=== PATIENT | female | born 1950 | race Caucasian/White ===

== ENCOUNTER 2017-10-14 04:51 | Inpatient (IN) | payer OTHER, BC ==
[2017-09-26 10:53] VITALS: BMI 58.0
--- NOTE | 2017-09-26 11:38 | PAT Medication Instructions ---
Service Date Sep 26, 2017. Current Home Medication List Atorvastatin (Lipitor), 20 MG PO HS Calcitriol (Rocaltrol Cap), 3 TAB PO QAM Calcium Carbonate-Cholecalcife (Caltrate 600+D), 3 TABS PO QAM Calcium Carbonate-Cholecalcife (Caltrate 600+D), 4 TAB PO 1200&1800 Hydrocodone/Acetaminophen 5MG/325MG ([place] 5MG/325MG), 1-2 TABLETS PO Q4-6H PRN for Pain Levothyroxine Sodium (Levothyroxine Sodium), 1 TAB PO QAM Lisinopril (Prinivil), 10 MG PO HS Magnesium Oxide (Mag-Ox), 400 MG PO QID Metformin Hcl (Glucophage), 500 MG PO BID Multivitamin (Multivitamin), 1 TAB PO QAM Ranitidine (Zantac), 150 MG PO QAM Medication Instructions For Your Scheduled Surgery - Hold the following medications the morning of surgery: Metformin Hcl (Glucophage), 500 MG PO BID Calcitriol (Rocaltrol Cap), 3 TAB PO QAM Calcium Carbonate-Cholecalcife (Caltrate 600+D), 3 TABS PO QAM Magnesium Oxide (Mag-Ox), 400 MG PO QID Multivitamin (Multivitamin), 1 TAB PO QAM - Take the following medications the morning of surgery with a sip of water: Hydrocodone/Acetaminophen 5MG/325MG ([place] 5MG/325MG), 1-2 TABLETS PO Q4-6H PRN for Pain (if needed, can be Levothyroxine Sodium (Levothyroxine Sodium), 1 TAB PO QAM Ranitidine (Zantac), 150 MG PO QAM - Take the following medications as scheduled the afternoon/night before surgery : Atorvastatin (Lipitor), 20 MG PO HS Calcium Carbonate-Cholecalcife (Caltrate 600+D), 4 TAB PO 1200&1800 Hydrocodone/Acetaminophen 5MG/325MG ([place] 5MG/325MG), 1-2 TABLETS PO Q4-6H PRN for Pain (if needed) Lisinopril (Prinivil), 10 MG PO HS Magnesium Oxide (Mag-Ox), 400 MG PO QID If you have any questions please call us at [phone] or [phone] or [phone]
--- NOTE | 2017-09-26 12:31 | DIAGNOSTIC IMAGING REPORT ---
CHEST 2 VIEWS ROUTINE CLINICAL HISTORY: Preoperative chest COMPARISON STUDY: No previous studies for comparison. FINDINGS: The cardiac and mediastinal contours are normal. There is no evidence of focal pulmonary consolidation. There is no evidence of failure. No pleural effusions are visualized.[ IMPRESSION: No active disease in the chest. Electronically signed by: Ketan Cummings M.D. 09/26/2017 12:29 PM Dictated Date/Time: 09/26/2017 12:28 PM
[2017-09-26 13:19] LABS: HEMOGLOBIN A1C 6.7 % (4.5-5.6)
--- NOTE | 2017-10-03 14:58 | HISTORY & PHYSICAL EXAMINATION ---
DATE OF ADMISSION: 10/14/2017 CHIEF COMPLAINT: Right knee pain. HISTORY OF PRESENT ILLNESS: Annette is a 67-year-old female with a 1 year history of right knee pain. The patient rates her pain as 9/10. She has pain with her daily activities. She has limited standing and walking tolerance. Pain is worse with weightbearing. The patient has been taking Benavides for pain control. She ambulates with a cane. She has failed conservative treatment and is scheduled for right knee replacement. PAST MEDICAL HISTORY: Hypertension, diabetes. She denies heart disease or DVT. PAST SURGICAL HISTORY: Breast biopsy, thyroidectomy, parathyroidectomy and I and D pilonidal cyst. SOCIAL HISTORY: The patient denies alcohol or tobacco use. She lives in a single-story home with her sister and is retired. FAMILY HISTORY: Brother of PE. MEDICATIONS: Atorvastatin 20 mg, calcitriol 0.25 mcg, Synthroid 175 mcg, Zantac 150 mg Caltrate, alprazolam 0.25 mg, lisinopril 10 mg, multivitamin, Benavides 5/325 p.r.n. ALLERGIES: None. REVIEW OF SYSTEMS: See HPI. Ten other systems reviewed, all negative. PHYSICAL EXAMINATION: VITAL SIGNS: Height 5 foot 4 inches, weight 326 pounds, BMI 56. GENERAL: This is a well-developed, well-nourished female who is alert and oriented x3. Mood and affect are appropriate. HEENT: Normocephalic, atraumatic. Mucous membranes are moist and intact. NECK: Supple without lymphadenopathy. HEART: Regular rate and rhythm without murmurs, rubs or gallops. LUNGS: Clear to auscultation without wheezes or rhonchi. ABDOMEN: Soft and nontender. Bowel sounds are equal and active. EXTREMITIES: No ecchymosis, redness or warmth. Thigh and calf are soft and nontender. She has varus deformity. Range of motion is from 10-90 degrees. She has no laxity. She is neurovascularly intact with +5/5 strength. She has moderate Brown cyst. X-RAY EXAMINATION: AP and lateral views showed joint space narrowing and osteophyte formation. IMPRESSION: Degenerative joint disease, right knee. PLAN: The patient will be admitted for a right total knee arthroplasty. We will plan on aspirin for DVT prophylaxis. She will have [facility] for home physical therapy.
[~2017-10-14] VITALS: Ht 162.6 cm; Wt 153.1 kg
[2017-10-14] VITALS (9 sets, daily range): BP systolic 115–148; BP diastolic 67–83; PULSE 55–68; TEMP 36.4–36.7; O2SAT 91–97; Ht 162.6 cm; Wt 153.1 kg
[~2017-10-14 04:51] MED LIST: ATOR-22 PO; CALC-354 PO; CALC0.2510 PO; GLC/500 PO; HYDR-5688 PO; LEVO175T3 PO; LISI10TA PO; MAGN400T5 PO; MULT-506 PO; RANI150T85 PO
[2017-10-14] MEDS ORDERED: METOCLOPRAMIDE HCL 10 MG TAB PO SCH (06:00)
[2017-10-14] MEDS ORDERED: LACTATED RINGER'S 1000ML 500 ML IV SCH (06:00)
[2017-10-14] MEDS ORDERED: ACETAMINOPHEN 500 MG TAB PO SCH (06:00)
[2017-10-14] MEDS ORDERED: GABAPENTIN 300 MG CAP PO SCH (06:00)
[2017-10-14] MEDS ORDERED: FAMOTIDINE 20 MG TAB PO SCH (06:00)
[2017-10-14] MEDS ORDERED: CEFAZOLIN 3000MG IV PUSH 22.5 ML IV SCH (06:00)
[2017-10-14] MEDS ORDERED: LACTATED RINGER'S 1000ML 1,000 ML IV SCH (06:00)
[2017-10-14] MEDS ORDERED: ROPIVACAINE 5MG/ML 30 ML 150 MG, BUPIVACAINE 0.5% MPF INJ 30 ML, EpINEphrine HCL INJ 0.... INFIL SCH ×8 (06:00)
[2017-10-14] MEDS ORDERED: DEXAMETHASONE 4 MG TAB PO SCH (06:00)
[2017-10-14] MEDS ORDERED: CeleBREX 200 MG CAP PO SCH (06:00)
[2017-10-14] MEDS: TRANEXAMIC ACID INJ 1,000 MG x 2 Bags IV SCH ×4 (06:30→07:08)
[2017-10-14] MEDS ORDERED: BUPIVACAINE 0.25% 30 ML VIAL ONE (06:42)
[2017-10-14] MEDS ORDERED: BUPIVACAINE 0.5 % 5 MG/1 ML PF 10ML VIAL ONE (06:43)
[2017-10-14] MEDS ORDERED: MIDAZOLAM HCL 1 MG/ML 2ML VIAL ONE (06:47)
[2017-10-14] MEDS ORDERED: FENTANYL CITRATE INJ 50 MCG/1 ML 2 ML VIAL ONE (06:48)
[2017-10-14] MEDS ORDERED: LIDOCAINE HCL 2% 2 ML VIAL (20MG/ML) ONE (06:50)
[2017-10-14] MEDS ORDERED: ONDANSETRON INJ 2 MG/ML 2 ML VIAL ONE (06:54)
[2017-10-14] MEDS ORDERED: PROPOFOL IV EMULSION 10 MG/ML 20 ML VIAL ONE (06:54)
[2017-10-14] MEDS ORDERED: BACITRACIN 50000 UNIT VIAL ONE (06:57)
[2017-10-14] MEDS ORDERED: POVIDONE-IODINE OP SOLN 30 ML BTL ONE (06:57)
[2017-10-14] MEDS ORDERED: ORTHO JOINT ANESTHETIC ONE (06:57)
--- NOTE | 2017-10-14 07:05 | History & Physical Bridge Note ---
H&P Re-Evaluation Bridge Note: I have examined the patient, reviewed the History & Physical and in the interval since the performance of the History & Physical I have noted the following changes of clinical significance: No changes noted
--- NOTE | 2017-10-14 08:31 | [facility] Post Operative Brief Note ---
Immediate Operative Summary Operative Date October 14, 2017. 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 Trey Knox Estimated Blood Loss 5CC Findings Consistent with Post-Op Diagnosis Specimens A: Right Knee Bone and Tissue Anesthesia Type MAC Spinal Regional Complication(s) none Disposition Disposition: Recovery Room / PACU
--- NOTE | 2017-10-14 08:32 | [facility] Operative Report ---
Operative Report Operative Date October 14, 2017. Pre-Operative Diagnosis Degenerative Joint Disease, Right Knee Post-Operative Diagnosis Degenerative Joint Disease, Right Knee Procedure(s) Performed Right Total Knee Arthroplasty utilizing [employer] journey to non-block total knee arthroplasty size 5 femur 5 tibia 10 polyethylene [address] Hernandez Share Holder Surgeon(s) Slim Washington PA-C, Dr. Trey Knxo Estimated Blood Loss 5CC Findings Sinus surgery patient did have evidence of severe end-stage DJD eburnated bone subchondral cystic changes marginal osteophyte sclerosis with a grade 4 osteoarthritis and [id number] changes Specimens A: Right Knee Bone and Tissue Anesthesia Type MAC Spinal Regional Complication(s) none Disposition Recovery Room / PACU Indications Patient presents after failed Conservative Management Including Physical Therapy Anti-Inflammatories Relative Rest Activity Modification Corticosteroid Injections Visco Supplementation Patient Presents for Right Total Knee Arthroplasty Description of Procedure After proper prepping and draping of the Right lower extremity anterior midline incision was made over the region of the extensor extensor mechanism after meticulous hemostasis was obtained and maintained in subcutaneous tissues a medial parapatellar incision was made The patella was subluxed lateralward the medial lateral gutter were cleaned from any hypertrophic synovitis and scar tissue of the distal femoral block was placed and the distal femoral osteotomy cut was made subsequently the chamfers anterior and posterior osteotomy cuts were made utilizing the 4-in-1 block the tibia was subsequently subluxed anteriorward medial and ateral meniscal remnants were excised in their entirety remnants of the anterior and posterior cruciate ligaments were excised in their entirety excellent exposure of the proximal tibia was obtained the tibial osteotomy guide was placed on the proximal tibial osteotomy cut was made once again the knee was irrigated with copious amounts of sterile saline solution the patella was subsequently everted lateralward thickened scar tissue around the patella was removed the patella was subsequently cut utilizing a freehand technique and was drilled prepared for final preparation and placement of patella socially flexion-extension gaps were checked and the equal and symmetric trials were placed to the appropriate femoral and tibial trials with poly-spacer being placed for equal flexion and extension gaps and full range of motion including extension to 0 and flexion to 140 the trial components after having been taken to recovery range of motion was subsequently removed meticulous hemostasis was obtained and maintained subsequently a knee block injection of joint cocktail including ropivacaine 0.5% 150 mg. Bupivacaine 0.5 % epinephrine 1-200,030 mL's toradol 30 mg dexamethasone 4 mg ketamine 10 mg clonidine 100 micrograms normal saline solution 30 mg was infiltrated into the soft tissues of the posterior knee medial lateral gutters and periosteal synovium special attention was paid to protect neurovascular structures at all times subsequently trial components having been removed the knee was irrigated with sterile saline solution. debris was removed the proximal tibia was subsequently prepared and was made ready for the placement of the tibial component tibial component was also cemented and tamped into position the femoral component was subsequently placed and cemented in the position the patellar component was subsequently cemented in position because hemostasis once again obtained and maintained wound having been thoroughly irrigated with debridement and debridement lavage was performed as well as a medial parapatellar incision closed with #1 Vicryl in interrupted fashion subcutaneous was closed with #2 Vicryl skin was closed with skin clips. PA-C was necessary for prepping and drapping as well as wound closure of deep fascia Sub cutaneous tissue and skin and was necessary for the case. A sterile compressive dressing was placed patient was taken to recovery in stable condition of report dictated by David I attest to the content of the Intraoperative Record and any orders documented therein. Any exceptions are noted below. I attest to the content of the Intraoperative Record and any orders documented therein. Any exceptions are noted below.
[2017-10-14] MEDS ORDERED: ATROPINE SULFATE 0.1 MG/ML 5ML SYR IV PRN (08:45)
[2017-10-14] MEDS ORDERED: ONDANSETRON INJ 2 MG/ML 2 ML VIAL IV PRN ×2 (08:45→09:15)
[2017-10-14] MEDS ORDERED: FENTANYL CITRATE INJ 50 MCG/1 ML 2 ML VIAL IV PRN (08:45)
[2017-10-14] MEDS ORDERED: EpHEDrine SULFATE INJ 50 MG/ML AMP IV PRN (08:45)
[2017-10-14] MEDS ORDERED: BISACODYL 10 MG SUPP PR PRN (09:15)
[2017-10-14] MEDS ORDERED: MAGNESIUM HYDROXIDE SUSP 30 ML UDC PO PRN (09:15)
[2017-10-14] MEDS ORDERED: TRAMADOL HCL 50 MG TAB PO PRN (09:15)
[2017-10-14] MEDS ORDERED: ALUMINUM/MAGNESIUM/SIMETH (MAALOX MAX) 30 ML UDC PO PRN (09:15)
[2017-10-14] MEDS ORDERED: ZOLPIDEM TARTRATE 5 MG TAB PO PRN (09:15)
[2017-10-14] MEDS ORDERED: SOD PHOSPHATE/SOD BIPHOSPHATE ENEMA 132 ML BTL PR PRN (09:15)
[2017-10-14] MEDS ORDERED: MoRPHine SULFATE 4 MG/ML 1 ML CARP\\VIAL IV PRN (09:15)
--- NOTE | 2017-10-14 09:36 | DIAGNOSTIC IMAGING REPORT ---
RIGHT KNEE 2 VIEWS History: Right total knee arthroplasty. Degenerative arthritis. Postop. FINDINGS: The patient is status post a right total knee arthroplasty. The hardware is intact. No fracture or dislocation. Skin elvie and surgical drains are in place. IMPRESSION: Right total knee arthroplasty. No evidence for hardware complication. Electronically signed by: Jasson Chapman M.D. 10/14/2017 9:34 AM Dictated Date/Time: 10/14/2017 9:34 AM
--- NOTE | 2017-10-14 10:02 | Anesthesiology Progress Note ---
Anesthesia Post Op Note Date & Time October 14, 2017 at 10:02 Vital Signs Pain Intensity: 0 Vital Signs Past 12 Hours Date Time Temp Pulse Resp B/P (MAP) Pulse Ox O2 Delivery O2 Flow Rate FiO2 10/14/17 09:55 56 15 125/67 97 Nasal Cannula 2 10/14/17 09:40 36.3 58 14 174/78 98 Nasal Cannula 2 10/14/17 09:30 65 22 152/71 96 Nasal Cannula 2 10/14/17 09:20 59 20 150/74 97 Nasal Cannula 2 10/14/17 09:12 36.4 57 19 139/74 95 Nasal Cannula 2 10/14/17 05:45 36.5 63 20 145/83 95 Room Air Notes Mental Status: alert / awake / arousable, participated in evaluation Pt Amnestic to Procedure: Yes Nausea / Vomiting: adequately controlled Pain: adequately controlled Airway Patency, RR, SpO2: stable & adequate BP & HR: stable & adequate Hydration State: stable & adequate Neuraxial Anesthesia: was administered, sensory block is resolving Anesthetic Complications: no major complications apparent
[2017-10-14] MEDS: OXYCODONE HCL IR 5 MG TAB (IMMEDIATE RELEASE) PO PRN (10:46)
[2017-10-14] MEDS ORDERED: D5W AND 1/2NSS + 20MEQ KCL 1,000 ML IV SCH (11:30)
[2017-10-14] MEDS ORDERED: NURSING VERBAL MED ORDER ONE ×2 (12:00→19:15)
[2017-10-14] MEDS: CALCIUM 600MG + VIT D 400 IU TAB PO SCH ×2 (12:46→17:46)
--- NOTE | 2017-10-14 12:54 | Medical Consult ---
Consultation Date of Consultation: October 14, 2017. Attending Physician: Omero Hernandez D.O. History of Present Illness 67 y/o F Hx HTN, DM II, HPL, hypothyroidism, morbid obesity. Presented for elective R TKA. She is recovering well post-op. Denies CP, SOB, nausea/ vomiting or excessive pain at the site of surgery. Past Medical/Surgical History 1) HTN 2) HPL 3) DM 4) Morbidly obese 5) DJD 6) Hypothyroidism Surgical: 1) Thyroidectomy and parathyroidectomy 2) Breast biopsy Social History Smoking Status: Never Smoker Allergies Coded Allergies: No Known Allergies (Unverified , 10/14/17) Current Inpatient Medications Current Inpatient Medications Medications (Trade) Dose Ordered Sig/Ev Route Start Time Stop Time Status Last Admin Dose Admin Lactated Ringer's 1,000 ml @ 15 mls/hr Q24H IV 10/14/17 06:00 10/15/17 05:59 10/14/17 06:12 15 MLS/HR Cefazolin Sodium 22.5 ml @ 4.5 mls/min PREOP IV 10/14/17 06:00 10/14/17 18:00 10/14/17 07:26 4.5 MLS/MIN Acetaminophen (Tylenol Tab) 1,000 mg PREOP PO 10/14/17 06:00 10/14/17 18:00 10/14/17 06:05 1,000 MG Celecoxib (CeleBREX CAP) 200 mg PREOP PO 10/14/17 06:00 10/14/17 18:00 10/14/17 06:06 200 MG Dexamethasone (Decadron Tab) 8 mg PREOP PO 10/14/17 06:00 10/14/17 18:00 10/14/17 06:05 8 MG Famotidine (Pepcid Tab) 20 mg PREOP PO 10/14/17 06:00 10/14/17 18:00 10/14/17 06:05 20 MG Gabapentin (Neurontin Cap) 300 mg PREOP PO 10/14/17 06:00 10/14/17 18:00 10/14/17 06:05 300 MG Metoclopramide HCl (Reglan Tab) 10 mg PREOP PO 10/14/17 06:00 10/14/17 18:00 10/14/17 06:05 10 MG Fentanyl Citrate (Fentanyl Inj) 25 mcg Q5M PRN IV 10/14/17 08:45 10/14/17 13:45 Ondansetron HCl (Zofran Inj) 4 mg ONE PRN IV 10/14/17 08:45 10/14/17 13:45 Ephedrine Sulfate (EpHEDrine SULFATE INJ) 5 mg Q5M PRN IV 10/14/17 08:45 10/14/17 13:45 Atropine Sulfate (Atropine Sulfate 0.1mg/ml Inj) 0.5 mg Q1M PRN IV 10/14/17 08:45 10/14/17 13:45 Potassium Chloride/Dextrose/ Sod Cl 1,000 ml @ 100 mls/hr Q10H IV 10/14/17 11:30 10/15/17 11:29 Cefazolin Sodium 2000 mg/Syringe 15 ml @ 3.75 mls/ min Q8H IV 10/14/17 16:00 10/15/17 00:03 Celecoxib (CeleBREX CAP) 200 mg BID PO 10/14/17 21:00 11/13/17 20:59 Oxycodone HCl (Roxicodone Immediate Rel Tab) 1 TABLET FOR PAIN RATING... Q4H PRN PO 10/14/17 09:15 10/28/17 09:14 10/14/17 10:46 10 MG Acetaminophen (Tylenol Tab) 1,000 mg Q8H PO 10/14/17 14:00 11/13/17 13:59 Magnesium Hydroxide (Milk Of Magnesia Susp) 30 ml Q6H PRN PO 10/14/17 09:15 11/13/17 09:14 Bisacodyl (Dulcolax Supp) 10 mg DAILY PRN [place] 10/14/17 09:15 11/13/17 09:14 Sodium Biphosphate/ Sodium Phosphate (Fleet Enema) 132 ml DAILY PRN [place] 10/14/17 09:15 11/13/17 09:14 Senna (Senokot Tab) 17.2 mg HS PO 10/14/17 21:00 11/13/17 20:59 Docusate Sodium (coLACE CAP) 100 mg BID PO 10/14/17 21:00 11/13/17 20:59 Diphenhydramine HCl (Benadryl Cap) 25 mg Q8H PRN PO 10/14/17 09:15 11/13/17 09:14 Al Hydrox/Mg Hydrox/Simethicone (Maalox Max Susp) 15 ml Q4H PRN PO 10/14/17 09:15 11/13/17 09:14 Zolpidem Tartrate (Ambien Tab) 5 mg HSZ PRN PO 10/14/17 09:15 11/13/17 09:14 Multivitamins (Multivitamin Tab) 1 tab QAM PO 10/15/17 09:00 11/14/17 08:59 Ondansetron HCl (Zofran Inj) 4 mg Q6H PRN IV 10/14/17 09:15 11/13/17 09:14 Pantoprazole Sodium (Protonix Tab) 40 mg QAM PO 10/15/17 09:00 10/19/17 08:59 Tramadol HCl (Ultram Tab) 1 tablet for pain rating... Q4H PRN PO 10/14/17 09:15 11/13/17 09:14 Aspirin (Ecotrin Tab) 81 mg BID PO 10/14/17 21:00 11/13/17 20:59 Atorvastatin Calcium (Lipitor Tab) 20 mg HS PO 10/14/17 21:00 11/13/17 20:59 Calcitriol (Rocaltrol Cap) 0.75 mcg QAM PO 10/15/17 09:00 11/14/17 08:59 Levothyroxine Sodium (Synthroid Tab) 175 mcg DAILYBB PO 10/15/17 06:00 11/14/17 05:59 Lisinopril (Zestril Tab) 10 mg HS PO 10/14/17 21:00 11/13/17 20:59 Magnesium Oxide (Mag-Ox Tab) 400 mg QID PO 10/14/17 13:00 11/13/17 12:59 Calcium/Vitamin D (Caltrate Plus Tab) 3 tab QAM PO 10/15/17 09:00 11/14/17 08:59 Calcium/Vitamin D (Caltrate Plus Tab) 4 tab DAILY@1200,1800 PO 10/14/17 12:00 11/13/17 11:59 Morphine Sulfate (MoRPHine SULFATE INJ) @ Q4HWA PRN IV 10/14/17 09:15 10/28/17 09:14 Miscellaneous Information (Nursing Verbal Med Order) 1 ea ONE ONCE N/A 10/14/17 12:00 10/14/17 12:01 UNV Review of Systems Constitutional: No fever, No chills, No sweats Eyes: No worsening of vision ENT: No hearing loss, No nasal symptoms Respiratory: No cough, No sputum, No wheezing Cardiovascular: No chest pain, No PND Abdomen: No pain, No nausea, No vomiting Musculoskeletal: + joint pain (Chronic R knee pain) Genitourinary - Female: No dysuria Neurologic: No memory loss, No paralysis Psychiatric: No depression symptoms Endocrine: No fatigue Hematologic / Lymphatic: No abnormal bleeding/bruising Integumentary: No rash Allergic / Immunologic: No environmental allergies Physical Exam Date Time Temp Pulse Resp B/P (MAP) Pulse Ox O2 Delivery O2 Flow Rate FiO2 10/14/17 12:10 66 17 148/72 (97) 93 Nasal Cannula 2.0 10/14/17 11:06 59 16 148/80 (102) 96 Room Air 10/14/17 10:35 36.4 55 16 148/82 (104) 96 10/14/17 10:05 Nasal Cannula 2.0 10/14/17 10:05 36.5 57 18 127/68 (87) 97 Nasal Cannula 2.0 10/14/17 10:05 Nasal Cannula 2.0 10/14/17 09:55 56 15 125/67 97 Nasal Cannula 2 10/14/17 09:40 36.3 58 14 174/78 98 Nasal Cannula 2 10/14/17 09:30 65 22 152/71 96 Nasal Cannula 2 10/14/17 09:20 59 20 150/74 97 Nasal Cannula 2 10/14/17 09:12 36.4 57 19 139/74 95 Nasal Cannula 2 10/14/17 05:45 36.5 63 20 145/83 95 Room Air General Appearance: WD/WN, no apparent distress Head: normocephalic Eyes: normal inspection ENT: normal ENT inspection, pharynx normal Neck: supple, thyroid normal Respiratory/Chest: chest non-tender, lungs clear, normal breath sounds Cardiovascular: regular rate, rhythm, no edema Abdomen/GI: normal bowel sounds, non tender, soft Genitourinary - Female: external genitalia normal, normal pelvic exam Back: normal inspection, no CVA tenderness Extremities/Musculoskelatal: normal inspection, no calf tenderness Neurologic/Psych: armhole baster jumpbasting II-XII nml as tested, no motor/sensory deficits, alert, oriented x 3 Skin: normal color Laboratory Results Last 24 Hours Test 10/14/17 05:43 10/14/17 06:00 10/14/17 09:39 10/14/17 11:26 Bedside Glucose 114 mg/dl 124 mg/dl 135 mg/dl Assessment & Plan 67 y/o F Hx HTN, diet-controlled DM, HPL, hypothyroidism, morbid obesity. Presented for elective R TKA. She is recovering well post-op. Denies CP, SOB, nausea/vomiting or excessive pain at the site of surgery. 1) Post-op - pain is adequately controlled - commence PT/OT and provide anticoagulation at earliest possible time. 2) Hypothyroidism - cont Synthroid 3) DM - appropriate diet - does not likely need insulin - can resume Metformin with full meals 4) HPL - cont Statin 5) HTN - Lisinopril is scheduled HS so we will check a BMP prior Total time for this consult including review of labs, meds. op notes, records - discussion/exam with pt 32 min
[2017-10-14] MEDS: MAGNESIUM OXIDE 400 MG TAB PO SCH ×3 (13:00→19:58)
[2017-10-14] MEDS: ACETAMINOPHEN 500 MG TAB PO SCH ×2 (13:33→20:15)
[2017-10-14] MEDS: CEFAZOLIN IV 2,000 MG in SYRINGE 0 ML IV SCH ×2 (15:30→23:43)
[2017-10-14 18:38] LABS: CALCIUM 7.5 mg/dl (8.5-10.1); CREATININE 1.23 mg/dl (0.60-1.20); POTASSIUM 4.8 mmol/L (3.5-5.1)
[2017-10-14] MEDS: SODIUM CHLORIDE 0.9% 1000ML 1,000 ML IV SCH (19:54)
[2017-10-14] MEDS: ASPIRIN 81 MG ECTAB PO SCH (19:58)
[2017-10-14] MEDS: ATORVASTATIN 20 MG TAB PO SCH (19:58)
[2017-10-14] MEDS: DOCUSATE SODIUM 100 MG CAP PO SCH (19:58)
[2017-10-14] MEDS: SENNA 8.6 MG TAB PO SCH (19:58)
[2017-10-14] MEDS: LISINOPRIL 10 MG TAB PO SCH (19:59)
[2017-10-14] MEDS: CeleBREX 200 MG CAP PO SCH (20:16)
[2017-10-15] MEDS: OXYCODONE HCL IR 5 MG TAB (IMMEDIATE RELEASE) PO PRN ×4 (02:31→20:17)
[2017-10-15 03:19] VITALS: BP 119/71; PULSE 56; TEMP 36.5; O2SAT 91
[2017-10-15] MEDS: SODIUM CHLORIDE 0.9% 1000ML 1,000 ML IV SCH ×2 (05:30→16:13)
[2017-10-15] MEDS: ACETAMINOPHEN 500 MG TAB PO SCH ×3 (05:31→22:16)
[2017-10-15] MEDS: LEVOTHYROXINE 175 MCG TAB PO SCH (05:31)
[2017-10-15 07:04] LABS: HEMATOCRIT 40.5 % (37-47); HEMOGLOBIN 13.2 g/dL (12.0-16.0); MEAN CELL VOLUME 82.3 fL (80-100); MEAN CORPUSCULAR HEMOGLOBIN 26.8 pg (25-34); MEAN CORPUSCULAR HGB CONC 32.6 g/dl (32-36); PLATELET COUNT 255 K/uL (130-400); RED CELL DISTRIBUTION WIDTH CV 16.1 % (11.5-14.5); RED CELL DISTRIBUTION WIDTH SD 48.4 fL (36.4-46.3); WHITE BLOOD COUNT 11.72 K/uL (4.8-10.8)
[2017-10-15 07:36] LABS: CALCIUM 7.3 mg/dl (8.5-10.1); CREATININE 1.11 mg/dl (0.60-1.20); POTASSIUM 4.4 mmol/L (3.5-5.1)
[2017-10-15 07:45] VITALS: BP 131/73; PULSE 45; TEMP 36.5; O2SAT 98
--- NOTE | 2017-10-15 07:56 | Orthopedic Progress Note ---
Orthopedic Progress Note Date of Service October 15, 2017. Subjective Post OP Day: 1 Reports: feeling well, Denies: chest pain, SOB, nausea / vomiting, light headedness, calf pain Objective calves soft nontender, N/V intact, capillary refill less than 2 sec., dressing C /D/I, A&O x3, toes mobile, hemovac drainage (350cc per shift) Date Time Temp Pulse Resp B/P (MAP) Pulse Ox O2 Delivery O2 Flow Rate FiO2 10/15/17 07:45 36.5 45 16 131/73 (92) 98 Room Air 10/15/17 03:19 36.5 56 16 119/71 (87) 91 Room Air 10/14/17 23:15 36.6 60 16 116/73 (87) 91 Room Air 10/14/17 19:40 36.7 64 16 115/67 (83) 92 Room Air 10/14/17 19:00 Room Air 10/14/17 15:44 36.5 60 16 121/70 (87) 92 Room Air 10/14/17 15:20 Room Air 10/14/17 13:01 36.6 68 16 132/77 (95) 97 Room Air 10/14/17 12:10 66 17 148/72 (97) 93 Nasal Cannula 2.0 10/14/17 11:06 59 16 148/80 (102) 96 Room Air 10/14/17 10:35 36.4 55 16 148/82 (104) 96 10/14/17 10:05 Nasal Cannula 2.0 10/14/17 10:05 36.5 57 18 127/68 (87) 97 Nasal Cannula 2.0 10/14/17 10:05 Nasal Cannula 2.0 10/14/17 09:55 56 15 125/67 97 Nasal Cannula 2 10/14/17 09:40 36.3 58 14 174/78 98 Nasal Cannula 2 10/14/17 09:30 65 22 152/71 96 Nasal Cannula 2 10/14/17 09:20 59 20 150/74 97 Nasal Cannula 2 10/14/17 09:12 36.4 57 19 139/74 95 Nasal Cannula 2 Laboratory Results 24 Hours: Test 10/15/17 06:28 Hematocrit 40.5 % Hemoglobin 13.2 g/dL Prothromb Time International Ratio 1.0 Prothrombin Time 10.6 SECONDS Assessment & Plan Assessment: POD#1 SP RIGHT TKA MORBID OBESITY Plan: PT/OT DVT PROPH- ASA 81MG BID PAIN MANAGEMENT- ROMEO, TYLENOL DC PLANNING- DC HOME TOMORROW WITH [facility]. DC DRESSING/DRAIN IN AM.
[2017-10-15] MEDS ORDERED: GLUCOSE 40% GEL 15 GM TUBE PO PRN (08:45)
[2017-10-15] MEDS ORDERED: CARBOHYDRATES FOR HYPOGLYCEMIA PO PRN (08:45)
[2017-10-15] MEDS ORDERED: DEXTROSE 50% 50 ML SYR IV PRN (08:45)
[2017-10-15] MEDS ORDERED: GLUCOSE 10 TABS/TUBE PO PRN (08:45)
[2017-10-15] MEDS ORDERED: GLUCAGON FOR INJ 1 MG VIAL SQ PRN (08:45)
[2017-10-15] MEDS: ASPIRIN 81 MG ECTAB PO SCH ×2 (09:43→22:14)
[2017-10-15] MEDS: DOCUSATE SODIUM 100 MG CAP PO SCH ×2 (09:43→22:16)
[2017-10-15] MEDS: CeleBREX 200 MG CAP PO SCH ×2 (09:43→22:14)
[2017-10-15] MEDS: MULTIVITAMIN TAB PO SCH (09:43)
[2017-10-15] MEDS: CALCIUM 600MG + VIT D 400 IU TAB PO SCH ×3 (09:43→17:49)
[2017-10-15] MEDS: CALCITRIOL 0.25 MCG CAP PO SCH (09:44)
[2017-10-15] MEDS: PANTOprazole SOD 40 MG TAB PO SCH (09:44)
[2017-10-15] MEDS: MAGNESIUM OXIDE 400 MG TAB PO SCH ×4 (09:44→22:13)
[2017-10-15 11:21] VITALS: BP 115/75; PULSE 58; TEMP 36.5; O2SAT 94
--- NOTE | 2017-10-15 11:26 | Hospitalist Progress Note ---
Hospitalist Progress Note Date of Service October 15, 2017. (Delmi Ge ., SUMMERC) Subjective Pt evaluation today including: conversation w/ patient, physical exam, chart review, lab review, review of inpatient medication list Pain: Controlled PO Intake: Tolerating PO diet Voiding: no voiding problems Patient reports feeing well. She states that her pain is well controlled and her pain mostly only occurs with walking/moving around. She denies any acute complaints. She is eating, urinating and passing gas postop without issue. She has not yet had a bowel movement. The patient denies fevers, chills, sweats , chest pain, palpitations, claudication, cough, wheezing, shortness of breath, nausea, vomiting, abdominal pain, dysuria, hematuria, urinary retention, paralysis, weakness, numbness and tingling. Additional Comments: See HPI for pertinent positives and negatives. All other systems reviewed and negative. (Delmi Ge ., PA-C) Objective Vital Signs Date Time Temp Pulse Resp B/P (MAP) Pulse Ox O2 Delivery O2 Flow Rate FiO2 10/15/17 07:45 36.5 45 16 131/73 (92) 98 Room Air 10/15/17 07:20 Room Air 10/15/17 03:19 36.5 56 16 119/71 (87) 91 Room Air 10/14/17 23:15 36.6 60 16 116/73 (87) 91 Room Air 10/14/17 19:40 36.7 64 16 115/67 (83) 92 Room Air 10/14/17 19:00 Room Air 10/14/17 15:44 36.5 60 16 121/70 (87) 92 Room Air 10/14/17 15:20 Room Air 10/14/17 13:01 36.6 68 16 132/77 (95) 97 Room Air 10/14/17 12:10 66 17 148/72 (97) 93 Nasal Cannula 2.0 (Delmi Ge ., SIOBHAN-C) Physical Exam Notes: General appearance: +Morbidly obese. Well-developed, well-nourished, no apparent distress Head: Normocephalic, atraumatic Eyes: Normal inspection, PERRL, EOMI ENT: Normal ENT inspection, hearing grossly normal, pharynx normal Neck: Supple, no JVD, trachea midline Respiratory/Chest: Lungs clear to auscultation, normal breath sounds, no respiratory distress Cardiovascular: +Systolic murmur. Regular rate & rhythm, no gallop Abdomen/GI: Normal bowel sounds, non-tender, soft Extremities/Musculoskeletal: +RLE wrapped in lyndsey bandage. Normal inspection, no calf tenderness, no pedal edema Neurological/Psych: Alert, normal mood/affect, oriented x 3 Skin: Normal color, warm/dry, no rash (Delmi Ge ., SUMMERC) Laboratory Results Last 24 Hours Test 10/14/17 11:26 10/14/17 17:15 10/14/17 17:55 10/14/17 20:44 Bedside Glucose 135 mg/dl 154 mg/dl 195 mg/dl Sodium Level 136 mmol/L Potassium Level 4.8 mmol/L Chloride Level 102 mmol/L Carbon Dioxide Level 29 mmol/L Anion Gap 5.0 mmol/L Blood Urea Nitrogen 25 mg/dl Creatinine 1.23 mg/dl Est Creatinine Clear Calc Drug Dose 65.0 ml/min Estimated GFR () 52.2 Estimated GFR (Non- 45.0 BUN/Creatinine Ratio 20.0 Random Glucose 161 mg/dl Calcium Level 7.5 mg/dl Test 10/15/17 06:28 10/15/17 08:13 White Blood Count 11.72 K/uL Red Blood Count 4.92 M/uL Hemoglobin 13.2 g/dL Hematocrit 40.5 % Mean Corpuscular Volume 82.3 fL Mean Corpuscular Hemoglobin 26.8 pg Mean Corpuscular Hemoglobin Concent 32.6 g/dl RDW Standard Deviation 48.4 fL RDW Coefficient of Variation 16.1 % Platelet Count 255 K/uL Mean Platelet Volume 10.0 fL Prothrombin Time 10.6 SECONDS Prothromb Time International Ratio 1.0 Sodium Level 138 mmol/L Potassium Level 4.4 mmol/L Chloride Level 104 mmol/L Carbon Dioxide Level 27 mmol/L Anion Gap 7.0 mmol/L Blood Urea Nitrogen 24 mg/dl Creatinine 1.11 mg/dl Est Creatinine Clear Calc Drug Dose 72.0 ml/min Estimated GFR () 59.1 Estimated GFR (Non- 51.0 BUN/Creatinine Ratio 21.9 Random Glucose 127 mg/dl Calcium Level 7.3 mg/dl Bedside Glucose 113 mg/dl (Delmi Ge ., PA-C) Assessment and Plan 67 y/o female with a history of HTN, HLD, DM II, hypothyroidism, and GERD who presents s/p R TKA with Dr. Hernandez on 10/14 for medical management. Right TKA--POD #1 -Pain management, DVT prophylaxis, and PT/OT as per primary team -Pain well managed, AVSS. HR as low as 45 this am, but not bradycardic on my exam HTN, HLD--stable -Continue lisinopril 10 mg PO hs, Lipitor 20 mg PO hs as renal function stable DM II--last HgbA1c 6.7 on 09/26/17 -Hold metformin -Insulin sliding scale -Check BSGs q ac and qhs Hypothyroidism -Continue Synthroid 175 mcg PO qd GERD -Continue PPI Pt. is stable from a medical standpoint, we will sign off. Clear for discharge as per primary team. (Delmi Ge ., PA-C) Supervising Note Dr. Marte I performed a history and physical examination on the patient. I reviewed above note and agree with it. I discussed plan with APC and patient. During my face to face encounter with the patient, I answered all of the patient's questions. Will continue lisinopril for BP control (Samy Marte M.D.)
[2017-10-15] MEDS: INSULIN ASPART 100 UNITS/ML 3 ML PEN SC SCH ×3 (12:00→21:00)
[2017-10-15 17:09] VITALS: BP 128/83; PULSE 61; TEMP 36.5; O2SAT 96
[2017-10-15] MEDS: LISINOPRIL 10 MG TAB PO SCH (22:14)
[2017-10-15] MEDS: SENNA 8.6 MG TAB PO SCH (22:14)
[2017-10-15] MEDS: ATORVASTATIN 20 MG TAB PO SCH (22:15)
[2017-10-15 23:42] VITALS: BP 119/72; PULSE 75; TEMP 36.9; O2SAT 96
[2017-10-16] MEDS: ACETAMINOPHEN 500 MG TAB PO SCH ×2 (05:11→14:14)
[2017-10-16] MEDS: OXYCODONE HCL IR 5 MG TAB (IMMEDIATE RELEASE) PO PRN ×3 (05:14→15:59)
[2017-10-16] MEDS: LEVOTHYROXINE 175 MCG TAB PO SCH (05:14)
[2017-10-16 06:55] LABS: HEMATOCRIT 38.3 % (37-47); HEMOGLOBIN 12.6 g/dL (12.0-16.0); MEAN CELL VOLUME 81.1 fL (80-100); MEAN CORPUSCULAR HEMOGLOBIN 26.7 pg (25-34); MEAN CORPUSCULAR HGB CONC 32.9 g/dl (32-36); PLATELET COUNT 290 K/uL (130-400); RED CELL DISTRIBUTION WIDTH CV 16.1 % (11.5-14.5); RED CELL DISTRIBUTION WIDTH SD 48.2 fL (36.4-46.3); WHITE BLOOD COUNT 8.69 K/uL (4.8-10.8)
[2017-10-16 07:17] VITALS: BP 149/80; PULSE 65; TEMP 36.7; O2SAT 92
[2017-10-16 07:22] LABS: CALCIUM 6.9 mg/dl (8.5-10.1); CREATININE 1.19 mg/dl (0.60-1.20); POTASSIUM 4.1 mmol/L (3.5-5.1)
[2017-10-16] MEDS: INSULIN ASPART 100 UNITS/ML 3 ML PEN SC SCH ×2 (08:00→12:59)
--- NOTE | 2017-10-16 08:33 | Orthopedic Progress Note ---
Orthopedic Progress Note Date of Service October 16, 2017. Subjective Post OP Day: 2 Reports: feeling well, Denies: chest pain, SOB, nausea / vomiting, light headedness, calf pain Objective calves soft nontender, N/V intact, capillary refill less than 2 sec., dressing C /D/I (PREVENA), A&O x3, toes mobile MODERATE ECCHYMOSIS AROUND INCISION. MILD ERYTHEMA. QUESTIONABLE CELLULITIS VS ECCHYMOSIS. MODERATE EDEMA. Date Time Temp Pulse Resp B/P (MAP) Pulse Ox O2 Delivery O2 Flow Rate FiO2 10/16/17 07:17 36.7 65 19 149/80 (103) 92 Room Air 10/16/17 00:45 Room Air 10/15/17 23:42 36.9 75 16 119/72 (88) 96 Room Air 10/15/17 17:09 36.5 61 18 128/83 (98) 96 Room Air 10/15/17 15:20 Room Air 10/15/17 11:21 36.5 58 17 115/75 (88) 94 Room Air Laboratory Results 24 Hours: Test 10/16/17 06:28 Hematocrit 38.3 % Hemoglobin 12.6 g/dL Assessment & Plan Assessment: POD#2 SP RIGHT TKA MORBID OBESITY Plan: PT/OT DVT PROPH- ASA 81MG BID PAIN MANAGEMENT- ROMEO, TYLENOL DC PLANNING- DC HOME TODAY VS TOMORROW WITH ADVANTAGE. MAY CONSIDER DC ON PO ABX FOR PROPHYLAXIS MEDICAL MANAGEMENT
--- NOTE | 2017-10-16 08:35 | Discharge Instructions ---
Discharge Instructions Date of Service October 16, 2017. Admission Reason for Admission: Right Knee Osteoarthritis Discharge Discharge Diagnosis / Problem: SP RIGHT TKA Discharge Goals Goal(s): Decrease discomfort, Improve function, Increase independence Activity Recommendations Activity Limitations: per Instructions/Follow-up section . Instructions / Follow-Up Instructions / Follow-Up ACTIVITY RECOMMENDATIONS: SELF CARE INSTRUCTIONS AFTER TOTAL KNEE REPLACEMENT A. You may need to continue a physical therapy program after discharge from the hospital. There are several options available to you. Your doctor will assist you in selecting the best one for you. 1. An out-patient facility 2 to 3 times a week for therapy or home therapy. 2. Continue working on all exercises taught to you in the hospital. Your goals should be to increase bending of your knee to 90 degrees and beyond and to fully straighten your knee. B. You may progress at your own pace from walking with a walker or crutches to a cane; then to no assistive devices. C. Make walking a part of your daily routine. Be up as much as comfortable with rest periods throughout the day. Rest with leg elevation is very important. Use the ice wrap frequently for the first 3-4 weeks. D. There are no restrictions on activities. You may ride in a car, shop, participate in employee relations consultant and all social activities. E. Wear the long elastic stockings (KRISTOPHER hose) 20 hours a day for 2 weeks after surgery. They can be removed several times a day for laundering and for a bath. F. You may shower, no tub baths until cleared by your doctor. SPECIAL CARE INSTRUCTIONS: VERY IMPORTANT TO READ AND REVIEW A. There are a few signs you need to watch for after you are home. Call [facility] if you notice any of the followin. Increased severe knee pain. Some pain is expected especially when you exercise. 2. Increased swelling in your leg or knee; pain or swelling of the calf muscle in either lower leg. 3. Any fluid drainage from the incision. 4. Shortness of breath or chest pain. B. Please call [facility] at if you have any concerns or questions about your operation or recovery. The doctor or his nurse will return your call promptly. C. You must take antibiotics before dental work, bladder, bowel or other surgery. Your doctor will provide you with a permanent care to carry describing this precaution. IMPORTANT: * REMEMBER TO TAKE ASPIRIN, 81 MG, TWICE DAILY FOR 4 WEEKS UNLESS OTHERWISE DIRECTED. THIS IS YOUR BLOOD THINNER. * HIGH RISK PATIENTS MAY BE PRESCRIBED A STRONGER BLOOD THINNER. THIS WILL BE PROVIDED AT DISCHARGE. * CALL IF INCREASED PAIN, REDNESS, DRAINAGE OR FEVER GREATER THAT 101. * WEAR KRISTOPHER HOSE 20 HOURS PER DAY FOR 2 WEEKS. * Prevena- This is a large suction dressing covering your incision. This will help pull any excess drainage from the wound and allow your incision to heal properly. You may shower with this if you can keep the unit outside of the shower. If any bleeding or leakage is noted please call your doctor's office. This will remain on your incision for 7 days and then should be removed. This can be done yourself or by the home nursing staff if applicable. The entire unit is disposable once removed. Once removed, keep incision clean and dry. If redness or drainage is noted, please call your surgeon. FOLLOW UP VISIT: If appointment is not already scheduled: Please call [facility] to make a follow-up appointment for 2 weeks after your surgery at . Current Hospital Diet Patient's current hospital diet: Diabetes Type 2 Diet Discharge Diet Recommended Diet: Regular Diet Procedures Procedures Performed: Right Total Knee Arthroplasty utilizing Likewise Software journey to non-block total knee arthroplasty size 5 femur 5 tibia 10 polyethylene 35 patella Pending Studies Studies pending at discharge: no Laboratory Results Hemoglobin A1c Test 09/26/17 11:47 Range/Units Estimated Average Glucose 146 mg/dl Hemoglobin A1c 6.7 H 4.5-5.6 % Medical Emergencies . Who to Call and When: Medical Emergencies: If at any time you feel your situation is an emergency, please call 911 immediately. . Non-Emergent Contact Non-Emergency issues call your: Surgeon . "Provider Documentation" section prepared by Jackie Farnsworth. . [place] Drug Monitoring Program Search Results: patient reviewed within database, no issues identified
[2017-10-16] MEDS ORDERED: CEFA500C2 PO (08:38)
[2017-10-16] MEDS ORDERED: ASPI-320 PO (08:38)
[2017-10-16] MEDS ORDERED: ONDA-170 PO (08:38)
[2017-10-16] MEDS ORDERED: ACET-24 PO (08:38)
[2017-10-16] MEDS ORDERED: RXC5 PO (08:38)
[2017-10-16] MEDS ORDERED: SENN-61 PO (08:38)
[2017-10-16] MEDS ORDERED: CLB200 PO (08:38)
[2017-10-16] MEDS: MULTIVITAMIN TAB PO SCH (08:53)
[2017-10-16] MEDS: CALCITRIOL 0.25 MCG CAP PO SCH (08:53)
[2017-10-16] MEDS: PANTOprazole SOD 40 MG TAB PO SCH (08:53)
[2017-10-16] MEDS: ASPIRIN 81 MG ECTAB PO SCH (08:54)
[2017-10-16] MEDS: CeleBREX 200 MG CAP PO SCH (08:54)
[2017-10-16] MEDS: DOCUSATE SODIUM 100 MG CAP PO SCH (08:54)
[2017-10-16] MEDS: CALCIUM 600MG + VIT D 400 IU TAB PO SCH ×2 (08:54→13:00)
[2017-10-16] MEDS: MAGNESIUM OXIDE 400 MG TAB PO SCH ×2 (09:14→12:59)
[2017-10-16] MEDS: SODIUM CHLORIDE 0.9% 1000ML 1,000 ML IV SCH (12:00)
[2017-10-16] MEDS ORDERED: CEPH500C2 PO (14:43)
[2017-10-16 16:16] VITALS: BP 149/80; PULSE 65; TEMP 36.7; O2SAT 92
--- NOTE | 2017-10-17 08:32 | Discharge Summary ---
Orthopedic Discharge Summary Admission Date/Reason October 14, 2017 at 06:45 Right Knee Osteoarthritis. Discharge Date/Disposition October 16, 2017 Home with services Diagnosis Principal Diagnosis: right knee osteoarthritis Secondary Diagnoses/Problems: Hypertension DM 2 morbid obesity Procedure(s) Performed Right Total Knee Arthroplasty utilizing Metzger neph journey to non-block total knee arthroplasty size 5 femur 5 tibia 10 polyethylene 35 patella [place] [facility] [place]- medical management Medication Reconciliation New Medications: Cefadroxil (Duricef) 500 Mg Cap 500 MG PO BID for 7 Days, #14 CAP Cephalexin Monohydrate (Keflex) 500 Mg Cap 500 MG PO QID for 5 Days, #20 CAP Ondansetron Hcl (Zofran) 8 Mg Tab 8 MG PO Q8 PRN for Nausea, #20 TAB Acetaminophen (Sb Non-Aspirin Extra Stre) 500 Mg Tab 1000 MG PO Q8H for 30 Days, #180 TAB Aspirin (Aspirin EC Low Dose) 81 Mg Ectab 81 MG PO BID for 30 Days, #60 TAB Celecoxib (Celebrex) 200 Mg Cap 200 MG PO BID, #60 CAP Oxycodone HCl (Oxycodone HCl) 5 Mg Tab 5-10 MG PO Q4H PRN for Pain, #60 TAB Senna (Senokot) 8.6 Mg Tab 17.2 MG PO HS for 14 Days, #28 TAB Continued Medications: Atorvastatin (Lipitor) 20 Mg Tab 20 MG PO HS, TAB Calcitriol (Rocaltrol Cap) 0.25 Mcg Cap 3 TAB PO QAM, CAP Calcium Carbonate-Cholecalcife (Caltrate 600+D) 1 Tab Tab 3 TABS PO QAM Calcium Carbonate-Cholecalcife (Caltrate 600+D) 1 Tab Tab 4 TAB PO 1200&1800 Levothyroxine Sodium (Levothyroxine Sodium) 175 Mcg Tab 1 TAB PO QAM for 90 Days, #90 TAB 3 Refills Lisinopril (Prinivil) 10 Mg Tab 10 MG PO HS, TAB Magnesium Oxide (Mag-Ox) 400 Mg Tab 400 MG PO QID, TAB Metformin Hcl (Glucophage) 500 Mg Tab 500 MG PO BID, TAB Multivitamin (Multivitamin) Tab 1 TAB PO QAM, TAB Ranitidine (Zantac) 150 Mg Tab 150 MG PO QAM, TAB Discontinued Medications: Hydrocodone/Acetaminophen 5MG/325MG ([place] 5MG/325MG) Tab 1-2 TABLETS PO Q4-6H PRN for Pain, TAB PRN PAIN Admission Physical Exam As per Admitting History & Physical. Hospital Course Patient was a same day admission after undergoing a successful right TKA. She tolerated the procedure well. Post-operatively, her activity was progressed and well tolerated. Please refer to daily progress notes and PT notes for complete details. After exam on 10/16/17, patient felt to be stable for discharge home with HHPT. Patient will f/u in the office in 2 weeks for further evaluation including x-rays and incision check, sooner if having any issues or concerns. Below are pertinent labs/studies during their hospital stay: Last Resulted CBC 10/16/17 06:28 Last Resulted BMP 10/16/17 06:28 Last Vital Signs Documentation Date Time Temp Pulse Resp B/P (MAP) Pulse Ox O2 Delivery O2 Flow Rate FiO2 10/16/17 16:16 36.7 65 19 92 Room Air 10/16/17 07:17 149/80 (103) 10/14/17 12:10 2.0 Discharge Instructions Please refer to the electronic Patient Visit Report (Discharge Instructions) for additional information.
== END 2017-10-16 16:40 | disposition home health service (06) | DRG 470 ==
LOC: C.ACU 04:51 → C.3E 06:45 → ENRESERV 09:46
PROVIDERS: ADMIT Orthopaedic Surgery; ATTEND Orthopaedic Surgery
PROC: 0SRC0J9 Replacement of Right Knee Joint with Synthetic Substitute, Cemented, Open Approach (ICD-10-PCS; principal; 2017-10-14 07:15)
DX: M17.11 Unilateral primary osteoarthritis, right knee (principal); E66.01 Morbid (severe) obesity due to excess calories; Z68.43 Body mass index [BMI] 50.0-59.9, adult; I10 Essential (primary) hypertension; E11.9 Type 2 diabetes mellitus without complications; E78.5 Hyperlipidemia, unspecified; E03.9 Hypothyroidism, unspecified; Z79.84 Long term (current) use of oral hypoglycemic drugs; Z79.899 Other long term (current) drug therapy